=== PATIENT | female | born 1990 | race Caucasian/White ===

== ENCOUNTER 2016-08-09 22:43 | Inpatient (IN) | payer OTHER ==
[2016-08-09 23:01] VITALS: BMI 26.5
[2016-08-09] MEDS ORDERED: OXYTOCIN IN LR 500 ML IV ONE (23:28)
[2016-08-09] MEDS ORDERED: PENICILLIN G POTASSIUM 5 MMU in NS 0.9% (MINI-BAG PLUS) 100 ML IV ONE (23:30)
[2016-08-09] MEDS ORDERED: LACTATED RINGERS 1,000 ML ONE (23:30)
[2016-08-09] MEDS ORDERED: IV START KIT ONE (23:30)
[2016-08-09 23:34] LABS: AMPHETAMINES/METHAMPHETAMINES NEGATIVE (NEGATIVE); COCAINE NEGATIVE (NEGATIVE); MARIJUANA POSITIVE (NEGATIVE); METHADONE NEGATIVE (NEGATIVE); OPIATES NEGATIVE (NEGATIVE); TRICYCLIC ANTIDEPRESSANTS NEGATIVE (NEGATIVE)
[2016-08-09] MEDS ORDERED: NS 0.9% (MINI-BAG PLUS) 100 ML IV ONE (23:54)
[2016-08-09] MEDS ORDERED: PENICILLIN G POTASSIUM 5 MMU VIAL ONE (23:54)
--- NOTE | 2016-08-10 00:36 | PCMAN ---
OB Admission Note - History : 2 Term: 1 : 0 Abortions (S&E): 0 Livin EDC:: 08/20/16 Gestational Age (weeks): 38 Days (#/7): 3 Admit Cervical Dilation:: 4 Admit Cervical Effacement (%):: 70 Admit Station:: -2 Admit Presentaton:: vertex Membrane Status: Ruptured Rupture (Date): 08/09/16 Rupture (Time): 10:00 Membranes Comment:: small amount clear fluid, nitrazine pos, ferning pos Labor Onset (Date): 08/09/16 Contractions: Yes Contraction Frequency:: q3-4 mins Heart Rate:: 155 (mod variability, occasional variables lasting 60 sec not > 50% of ctx.) Status:: Cat II EFW:: 7.5lbs Summary of Course:: DOMENIC Mello is a at 38w3d presenting with gross rupture of membranes and spontaneous onset of contractions. She is supported by her partner Thomas. Course: Riaz initiated care at 16w3d with the midwives for a total of 10 visits. Her pre BMI was 20.9 with TWG of 32 lbs. Unplanned, welcome . She conceived while taking OCPs and her dates were confirmed with a 17wUS that was consistent with her LMP. Her was complicated by: -partial placenta previa at 17 weeks, resolved by the time of her 20wk anatomy scan - varicose vein of her left calf, used compression stockings throughout the - marijuana use in -smoking at the beginning the , quit for -GBS pos status ObHx: 2014 7lb 8oz female at 39 wks - uncomplicated Med Hx: non-contributory Genetic screening: declined - Labs Blood Type: A (+) positive Hct/Hgb:: 11.8 Rubella Status: Immune GBS Status: Positive Abnormal Labs: Other (pos UDS for THC at 14wks and 35wks) - Review of Systems Complete ROS is negative except for leaking clear fluid and abdominal pain described as contractions. - Physical Exam Psych/Mental Status: Mood/Affect Appropriate, Judgment/Insight Intact Neurological: Grossly Intact, Alert, Oriented x 4 HEENT: Atraumatic Lungs: Clear to Auscultation Bilaterally, Normal Air Movement Cardiovascular: Regular Rate and Rhythm, Normal S1, Normal S2 Genitourinary: Normal Female Genitalia Extremities: Full ROM Skin: Normal Color (Roly's MADONNA) - Problems (1) Active labor at term Status: Acute Code: [id number]/Plan: A: Undelivered at 38w3d Latent labor nearing active labor GBS positive Fetus Cat II SROM - Membranes ruptured x 14 hours, clear fluid, afebrile P: Admit to FBC IV start, labs Initiate GBS prophylaxis per protocol Epidural for pain management when patient desires cEFM for Cat II tracing - Intrauterine resus measures PRN Patient declines AMTSL. Expectant labor management Anticipate active labor and (2) GBS (group B Streptococcus carrier), +RV culture, currently Status: Acute Code: O99.820
[2016-08-10 00:57] LABS: HEMATOCRIT 36.3 % (37.0-47.0); HEMOGLOBIN 12.4 gm/l (12.0-16.0); MEAN CELL VOLUME 96.8 fl (81.0-99.0); MEAN CORPUSCULAR HEMOGLOBIN 33.1 pg (27.0-31.0); MEAN CORPUSCULAR HGB CONC 34.2 g/dl (33.0-37.0); RED CELL DISTRIBUTION WIDTH 13.1 % (11.5-14.5)
[2016-08-10] MEDS ORDERED: EPIDURAL PUMP SET ONE (01:12)
[2016-08-10] MEDS ORDERED: FENTANYL/ROPIVACAINE EPIDURAL 250 ML EP ONE (01:12)
[2016-08-10] MEDS ORDERED: EPIDURAL PROCEDURE TRAY ONE (01:19)
[2016-08-10] MEDS: LACTATED RINGERS 1,000 ML IV PRN ×2 (01:20)
[2016-08-10] MEDS: FENTANYL/ROPIVACAINE EPIDURAL 250 ML EP SCH ×2 (01:52→17:01)
[2016-08-10] MEDS ORDERED: DIPHENHYDRAMINE HCL 50 MG/1 ML VIAL IV PRN (02:15)
[2016-08-10] MEDS ORDERED: ONDANSETRON 4 MG/2ML 2 ML VIAL IV PRN (02:15)
[2016-08-10] MEDS ORDERED: LACTATED RINGERS 500 ML IV PRN (02:15)
[2016-08-10] MEDS ORDERED: SODIUM CHLORIDE 0.9% 500 ML IV PRN (02:15)
[2016-08-10] MEDS ORDERED: EPHEDRINE SULFATE 50 MG/ML 1ML VIAL IV PRN (02:15)
[2016-08-10] MEDS ORDERED: NALOXONE HCL 0.4 MG/ML VIAL IV PRN (02:15)
[2016-08-10] MEDS ORDERED: NALBUPHINE HCL 20 MG/ML AMP IV PRN (02:15)
[2016-08-10] MEDS ORDERED: METOCLOPRAMIDE HCL 5 MG/ML 2ML VIAL IV PRN (02:15)
[2016-08-10] MEDS ORDERED: OXYTOCIN IN LR 500 ML IV ONE (03:06)
[2016-08-10] MEDS ORDERED: LIDOCAINE 1% (PRES FREE) 30 ML VIAL ONE (03:06)
[2016-08-10] MEDS ORDERED: OXYTOCIN 10 UNITS/ML VIAL ONE (03:06)
[2016-08-10] MEDS ORDERED: PUMP TUBING ONE (03:06)
[2016-08-10] MEDS ORDERED: MINERAL OIL 25 ML BOT ONE (03:06)
[2016-08-10] MEDS ORDERED: LIDOCAINE Viscous 2% 15 ML UDCUP ONE (03:06)
[2016-08-10] MEDS ORDERED: PENICILLIN G 3 MIL UNIT PREMIX 50 ML IV ONE ×2 (03:47→07:38)
[2016-08-10] MEDS: PENICILLIN G 3 MIL UNIT PREMIX 3 MMU in Premix (D5W) 50 ml 1 EACH IV SCH ×2 (03:50→08:17)
[2016-08-10] MEDS: LACTATED RINGERS 1,000 ML IV SCH ×3 (04:15→18:53)
--- NOTE | 2016-08-10 05:14 | PDOC36 ---
Provider Note Subject: Labor Progress Note Note: S: Riaz feels much more comfortable after getting an epidural O: VS 95/53 P93/R16 T 36.8F SVE 6/90%/-2 ruptured membranes, clear fluid BSL 145 moderate variability, no accels, no decels Ctx q 3-5 mins lasting 60-90 sec palpating moderate to strong A: Undelivered at 38w3d Active labor GBS positive x 2 doses PCN prophylaxis Fetus Cat I Membranes ruptured x 19 hours, clear fluid, afebrile P: Continue GBS prophylaxis per protocol Epidural cEFM Expectant labor management Anticipate Recheck in 2 hours or when clinically indicated.
[2016-08-10] MEDS ORDERED: ACETAMINOPHEN 325 MG TABLET PO PRN (10:07)
[2016-08-10] MEDS ORDERED: MAGNESIUM HYDROXIDE 30 ML UDCUP PO PRN (10:07)
[2016-08-10] MEDS ORDERED: CALCIUM CARBONATE 500 MG TAB.CHEW PO PRN (10:07)
[2016-08-10] MEDS ORDERED: BENZOCAINE/MENTHOL 60 APPLIC/BOT TP PRN (10:07)
[2016-08-10] MEDS ORDERED: LANOLIN 50 APPLIC/7G TUBE TP PRN (10:07)
--- NOTE | 2016-08-10 13:50 | PCMDEL ---
Delivery Note - Labor 1st stage (hr/min):: 7hr53 mins 2nd stage (hr/min):: 22mins 3rd stage (hr/min):: 7 mins Total (hr/min):: 8 hrs 15 mins Pushed (hr/min):: 22 mins - Delivery Delivery (Date): 08/10/16 Delivery (Time): 09:22 Infant Gender: Female Weight: 6 lb 9 oz Length: 1 ft 7.5 in Position: OA (to LOT) Umbilical Cord: 3 Vessel Delayed Cord Clamping:: > 3 min 1 Minute Total: 9 5 Minute Total: 10 Placenta:: Obey, grossly intact, 2cm area of calcificattion, thick cord EBL:: 300 Perineum:: intact Suture:: none Anesthesia/Meds:: epidural Length ROM:: 23 hours 22 minutes Comments:: First Stage: Riaz presented to [facility] around 11pmon 08/09/16 with SOOC and gross SROM. Initial SVE was 4/70%/-2 and she was song painfully. She was admitted and GBS prophylaxis initiated. Adequate prophylaxis achieved. She used an epidural for pain management and followed a normal labor curve to complete dilation by 0900. FHTs were Category 1 and Category II throughout first stage. Second stage: Riaz pushed effectively. AROM of a forebag allowed for more descent with each push. Variable decelerations noted to 70s and 80s with each push that resolved to baseline between contractions. Stranded beetle position was used to facilitate descent. With controlled delivery of the headm of vigorous female OA to LOT was achieved.. No nuchal cord. Anterior shoulder was apparent under the pubic bone and delivered easily as Riaz gently pushed out the rest of the body with the next contraction. Infant delivered directly to maternal abdomen. Third Stage: Delayed cord clamping >3 mins, cord cut by Thomas, the father. Cord Blood obtained. AMTSL was not initiated per patient's request. With signs of spontaneous separation, the placenta delivered Obey, grossly intact, 3VC. The maternal side had a 2cm diameter calcification near the edge, otherwise normal in appearance. Fundus was firm, midline and below the U. EBL at this point 150mL. Vagina, vaginal vault and perineum inspected and found to be intact. After inspection, a gush of blood was noted. Fundus massaged, firm and bleeding subsided. Another gush repeated again about 5 minutes later. Lower uterine sweep revealed 150mL clots and fundus firmed up well. 30mU oxytocin infused into IV at this time. After this her bleeding remained WNL. Total EBL 300mL remained skin to skin and initiated BF within 30 minutes of delivery. Mother and infant recovering and bonding well. Post delivery pause complete.
[2016-08-10] MEDS: IBUPROFEN 800 MG TABLET PO PRN ×2 (14:49→22:44)
[2016-08-11 07:06] LABS: HEMATOCRIT 34.3 % (37.0-47.0); HEMOGLOBIN 11.5 gm/l (12.0-16.0)
[2016-08-11] MEDS: IBUPROFEN 800 MG TABLET PO PRN ×2 (10:53→20:18)
[2016-08-11] MEDS: DOCUSATE SODIUM 100 MG CAPSULE PO SCH (10:53)
--- NOTE | 2016-08-11 11:10 | PDOC44 ---
- Subjective Day: 1 Happy with experience. Ambulating and voiding without difficulty. Bleeding getting solutions analyst. Pain well managed with PO medications. having some difficulties latching. Very drowsy yesterday. Has been hand expressing and feeding . More vigorous today and was able to latch successfully during visit. knows and plans to followup with patient today. Reports Flatus, Reports Pain Tolerable, Reports , Reports Lochia Light, Reports Tolerating Clear Liquids, Reports Tolerating Regular Diet, Denies Nausea, Denies Vomiting, Denies Fever - Objective Temp Pulse Resp BP Pulse Ox 97.8 F 78 16 98/54 08/11/16 07:56 08/11/16 07:56 08/11/16 07:56 08/11/16 07:56 Lab Results 08/11/16 06:31 Hgb 11.5 L Hct 34.3 L Current Medications Generic Name Dose Route Start Last Admin Trade Name Freq PRN Reason Stop Dose Admin Acetaminophen 325 - 650 mg 08/10/16 10:07 Tylenol PO Q4H PRN Pain (Mild) Benzocaine/Menthol 1 applic 08/10/16 10:07 08/10/16 14:48 Dermoplast TP 1 bot PRN PRN Administration Patient Comfort Calcium Carbonate/Glycine 500 - 1,000 mg 08/10/16 10:07 Tums PO BID PRN Indigestion Docusate Sodium 100 mg 08/11/16 09:00 08/11/16 10:53 Colace PO 100 mg DAILY JOSE E Administration Emollient Ointment 1 applic 08/10/16 10:07 [id number] TP PRN PRN sore nipples Ropivacaine/Fentanyl/NS 250 mls @ 0 mls/hr 08/10/16 02:15 08/10/16 17:01 Fentanyl 2 Mcg/Ml + Ropivacaine 0.125% Ep Bag EP Not Given EPI JOSE E Protocol Per Protocol Ibuprofen 800 mg 08/10/16 10:07 08/11/16 10:53 Motrin PO 800 mg Q6H PRN Administration Pain (Mild) Magnesium Hydroxide 30 ml 08/10/16 10:07 Milk Of Magnesia PO BEDTIME PRN Constipation - Physical Exam General: Afebrile, No Acute Distress Psych/Mental Status: Mood/Affect Appropriate, Judgment/Insight Intact, Bonding Well Neurological: Grossly Intact, Alert, Oriented x 4 Breast: Soft, Skin intact, Nipples Intact, No Tenderness Fundus: Firm, Midline, Below Umbilicus Genitourinary: Normal Female Genitalia, No Edema Lochia: Light Extremities: Full ROM, No Edema Skin: Normal Color, Warm, Dry - Problems:Assessment/Plan (1) care and examination of lactating mother Status: Acute Disposition: Anticipate DC Home Tomorrow
[2016-08-12 09:24] VITALS: BP 106/73
[2016-08-12] MEDS: DOCUSATE SODIUM 100 MG CAPSULE PO SCH (09:48)
[2016-08-12] MEDS: IBUPROFEN 800 MG TABLET PO PRN (09:48)
--- NOTE | 2016-08-12 10:13 | PDOC39B ---
Hospital Course: ADMIT DATE: 08/09/16 DISCHARGE DATE: 08/12/16 ADMISSION DIAGNOSES: Active Labor PROCEDURES: HISTORY OF PRESENT ILLNESS: 25 year old G2 T1 L1 at 38 weeks 4 days presenting with active labor. HOSPITAL COURSE: First Stage: Riaz presented to [facility] around 11pmon 08/09/16 with SOOC and gross SROM. Initial SVE was 4/70%/-2 and she was song painfully. She was admitted and GBS prophylaxis initiated. Adequate prophylaxis achieved. She used an epidural for pain management and followed a normal labor curve to complete dilation by 0900. FHTs were Category 1 and Category II throughout first stage. Second stage: Riaz pushed effectively. AROM of a forebag allowed for more descent with each push. Variable decelerations noted to 70s and 80s with each push that resolved to baseline between contractions. Stranded beetle position was used to facilitate descent. With controlled delivery of the headm of vigorous female OA to LOT was achieved.. No nuchal cord. Anterior shoulder was apparent under the pubic bone and delivered easily as Riaz gently pushed out the rest of the body with the next contraction. Infant delivered directly to maternal abdomen. Third Stage: Delayed cord clamping >3 mins, cord cut by Thomas, the father. Cord Blood obtained. AMTSL was not initiated per patient's request. With signs of spontaneous separation, the placenta delivered Barnhart, grossly intact, 3VC. The maternal side had a 2cm diameter calcification near the edge, otherwise normal in appearance. Fundus was firm, midline and below the U. EBL at this point 150mL. Vagina, vaginal vault and perineum inspected and found to be intact. After inspection, a gush of blood was noted. Fundus massaged, firm and bleeding subsided. Another gush repeated again about 5 minutes later. Lower uterine sweep revealed 150mL clots and fundus firmed up well. 30mU oxytocin infused into IV at this time. After this her bleeding remained WNL. Total EBL 300mL remained skin to skin and initiated BF within 30 minutes of delivery. Mother and recovering and bonding well. Post delivery pause complete. : Stable recovery. Riaz has been up ad carolyn to void without issue. She is ready to discharge. is going well overall, with the exception of engorgement. Desaray is worried about level of engorgement and returning to work without a pump. Rx given. Her pain is well managed with PO ibuprofen and her bleeding is minimal. She plans the minipill for contraception at 6wks PP. By day of discharge the patient is stable, well and ready to go home. - Physical Exam Vital Signs: Temp Pulse Resp BP Pulse Ox 97.9 F 81 16 106/73 08/12/16 09:23 08/12/16 09:23 08/12/16 09:23 08/12/16 09:23 General: Afebrile Psych/Mental Status: Mood/Affect Appropriate, Judgment/Insight Intact, Bonding Well Neurological: Grossly Intact, Alert, Oriented x 4, Normal Speech HEENT: Mucous membr. moist/pink Lungs: Clear to Auscultation Bilaterally Cardiovascular: Regular Rate and Rhythm Breast: Soft, Skin intact, Engorged, Nipples Intact Fundus: Firm, Midline, Below Umbilicus Genitourinary: Normal Female Genitalia Lochia: Light Extremities: Full ROM Skin: Normal Color, Warm, Dry, Intact - Discharge Diagnosis (1) (normal spontaneous vaginal delivery) Status: AcuteAssessment/Plan: A: PPD #2 s/p Exclusively , has engorgement Stable & appropriate for discharge P: Discharge to home. Reviewed warning s/s and when to call CNMs. Handout given. Plans mini pill for BCM. Desires Rx for breastpump for when she returns to work and d/t issues of engorgement. RTC in 2wks, appt given, and 6wks PP. - Discharge Plan Condition: Stable Disposition: Home Instruction Forms: Vaginal Discharge Instructions Additional Instructions: Midwifery 'After the ' handout given to patient. Alternate ibuprofen and tylenol q 3hrs as needed for increased pain. Continue to take vitamin. Prescriptions: Docusate Sodium [Colace] 250 mg PO DAILY PRN #14 cap PRN Reason: Constipation Ibuprofen [IBUPROFEN 800 MG TABLET (SHF)] 800 mg PO Q6H PRN #30 tablet PRN Reason: Pain Follow-Up: Kirti Galdamez CNM [Primary Care Provider] - 08/22/16 3:20 pm (In [place])
== END 2016-08-12 12:40 | disposition home or self-care (01) | DRG 775 ==
LOC: FBCOUT 22:43 → FBC 22:43 → FBCOUT 23:28 → FBC 23:28
PROVIDERS: ADMIT Advanced Practice Midwife; ATTEND Advanced Practice Midwife
PROC: 10907ZC Drainage of Amniotic Fluid, Therapeutic from Products of Conception, Via Natural or Artificial Opening (ICD-10-PCS; 2016-08-09)
PROC: 10E0XZZ Delivery of Products of Conception, External Approach (ICD-10-PCS; principal; 2016-08-10)
DX: O42.92 Full-term premature rupture of membranes, unspecified as to length of time between rupture and onset of labor (principal); O99.324 Drug use complicating childbirth; O87.4 Varicose veins of lower extremity in the puerperium; F12.20 Cannabis dependence, uncomplicated; Z37.0 Single live birth; O99.334 Smoking (tobacco) complicating childbirth; F17.210 Nicotine dependence, cigarettes, uncomplicated; O99.824 Streptococcus B carrier state complicating childbirth; O76 Abnormality in fetal heart rate and rhythm complicating labor and delivery; Z3A.38 38 weeks gestation of pregnancy